=== PATIENT | female | born 1970 | race African-American/Black ===

== ENCOUNTER 2024-02-20 21:12 | Emergency (ER) | payer OTHER ==
[2024-02-20 21:19] VITALS: BP 169/113; PULSE 92; RESP 18; TEMP 98.8; BMI 29.2
== END 2024-02-20 22:23 | disposition home or self-care (01) ==
LOC: JER 21:12
DX: T22.132A Burn of first degree of left upper arm, initial encounter (principal); T22.131A Burn of first degree of right upper arm, initial encounter; R20.2 Paresthesia of skin; Y04.0XXA Assault by unarmed brawl or fight, initial encounter; X10.0XXA Contact with hot drinks, initial encounter
CPT/HCPCS: 99282-25